=== PATIENT | male | born 1960 | race African-American/Black ===

== ENCOUNTER 2017-08-09 22:18 | Emergency (ER) | payer OTHER ==
[2017-08-09 22:32] VITALS: BP 140/57; PULSE 52; TEMP 98.5; BMI 33.9
--- NOTE | 2017-08-09 22:40 | PDOC ---
History of Present Illness - General History Source: Patient Exam Limitations: No Limitations - History of Present Illness Initial Comments: 08/09/17 22:59 The patient is a 56 year old male with a significant PMH of COPD, coronary artery spasms, and type 2 diabetes who presents to the emergency department with chest pain beginning earlier today. The patient describes his chest pain as a squeezing sensation with radiation to the left flank and intermittent LUE numbness, 6/10 in severity. The patient states he has been admitted several times in the past for similar symptoms. He states he has been compliant with his aspirin. The patient notes his last catheterization was in March. The patient denies shortness of breath, headache and dizziness. Denies fever, chills, nausea, vomit, diarrhea and constipation. Denies dysuria, frequency, urgency and hematuria. Allergies: NKA Past surgical history: None reported. Social history: No reported cigarette, alcohol, or drug use. PCP: Dr. Vines Cardio: Dr. Klein <Duncan Gill - Last Filed: 08/09/17 22:58> - General History Source: Patient <MaxineRaf - Last Filed: 08/10/17 00:34> - General Chief Complaint: Chest Pain Stated Complaint: CHEST PAIN Time Seen by Provider: 08/09/17 22:40 Past History <Duncan Gill - Last Filed: 08/09/17 22:58> - Past Medical History Cardiac Disorders: Yes COPD: Yes Diabetes: Yes - Suicide/Smoking/Psychosocial Hx Smoking History: Never smoked Have you smoked in the past 12 months: No Information on smoking cessation initiated: No Hx Alcohol Use: No Drug/Substance Use Hx: No Substance Use Type: None <Raf Briceno - Last Filed: 08/10/17 00:34> - Past Medical History Allergies/Adverse Reactions: Allergies Allergy/AdvReac Type Severity Reaction Status Date / Time No Known Allergies Allergy Verified 08/09/17 22:32 Review of Systems - Review of Systems Able to Perform ROS?: Yes Comments:: 08/09/17 22:59 CONSTITUTIONAL: Absent: fever, chills, diaphoresis, generalized weakness, malaise, loss of appetite HEENT: Absent: rhinorrhea, nasal congestion, throat pain, throat swelling, difficulty swallowing, mouth swelling, ear pain, eye pain, visual Changes CARDIOVASCULAR: (+) Chest pain with radiation to left flank and intermittent numbness to left arm Absent: syncope, palpitations, irregular heart rate, lightheadedness, peripheral edema RESPIRATORY: Absent: cough, shortness of breath, dyspnea with exertion, orthopnea, wheezing, stridor, hemoptysis GASTROINTESTINAL: Absent: abdominal pain, abdominal distension, nausea, vomiting, diarrhea, constipation, melena, hematochezia GENITOURINARY: Absent: dysuria, frequency, urgency, hesitancy, hematuria, flank pain, genital pain MUSCULOSKELETAL: Absent: myalgia, arthralgia, joint swelling SKIN: Absent: rash, itching, pallor HEMATOLOGIC/IMMUNOLOGIC: Absent: easy bleeding, easy bruising, lymphadenopathy, frequent infections ENDOCRINE: Absent: unexplained weight gain, unexplained weight loss, heat intolerance, cold intolerance NEUROLOGIC: Absent: headache, focal weakness or paresthesias, dizziness, unsteady gait, seizure, mental status changes, bladder or bowel incontinence PSYCHIATRIC: Absent: anxiety, depression, suicidal or homicidal ideation, hallucinations. <Duncan Gill - Last Filed: 08/09/17 22:58> *Physical Exam - Vital Signs Last Vital Signs Temp Pulse Resp BP Pulse Ox 98.5 F 52 L 17 140/57 100 08/09/17 22:29 08/09/17 22:29 08/09/17 22:29 08/09/17 22:29 08/09/17 22:29 - Physical Exam Comments: 08/09/17 22:59 GENERAL: Well developed, well nourished. Awake and alert. No acute distress. HEENT: Normocephalic, atraumatic. PERRLA, EOMI. No conjunctival pallor. Sclera are non- icteric. Moist mucous membranes. Oropharynx is clear. NECK: Supple. Full ROM. No JVD. Carotid pulses 2+ and symmetric, without bruits. No thyromegaly. No lymphadenopathy. CARDIOVASCULAR: (+) Bradycardic. Regular rhythm. No murmurs, rubs, or gallops. Distal pulses are 2+ and symmetric. PULMONARY: No evidence of respiratory distress. Lungs clear to auscultation bilaterally. No wheezing, rales or rhonchi. ABDOMINAL: Soft. Non-tender. Non-distended. No rebound or guarding. No organomegaly. Normoactive bowel sounds. MUSCULOSKELETAL Normal range of motion at all joints. No bony deformities or tenderness. No CVA tenderness. EXTREMITIES: No cyanosis. No clubbing. No edema. No calf tenderness. SKIN: Warm and dry. Normal capillary refill. No rashes. No jaundice. NEUROLOGICAL: Alert, awake, appropriate. Cranial nerves 2-12 intact. No deficits to light touch and temperature in face, upper extremities and lower extremities. No motor deficits in the in face, upper extremities and lower extremities. Normoreflexic in the upper and lower extremities. Normal speech. Toes are downgoing bilaterally. Gait is normal without ataxia. PSYCHIATRIC: Cooperative. Good eye contact. Appropriate mood and affect. <Duncan Gill - Last Filed: 08/09/17 22:58> - Vital Signs Last Vital Signs Temp Pulse Resp BP Pulse Ox 98.5 F 52 L 17 140/57 100 08/09/17 22:29 08/09/17 22:29 08/09/17 22:29 08/09/17 22:29 08/09/17 22:29 <Raf Briceno - Last Filed: 08/10/17 00:34> Heart Score/ECG Review #1 08/09/17 22:59 EKG done at 22:30 Vent rate 52 bpm Sinus bradycardia Nonspecific T wave abnormality Abnormal ECG <Duncan Gill - Last Filed: 08/09/17 22:58> ED Treatment Course - LABORATORY CBC & Chemistry Diagram: 08/09/17 23:12 08/09/17 23:12 <Raf Briceno - Last Filed: 08/10/17 00:34> Medical Decision Making - Medical Decision Making 08/10/17 00:31 Dr. Briceno: The scribe's documentation has been prepared under my direction and personally reviewed by me in its entirery. I confirm that the note above accurately reflects all work, treatment, procedures, and medical decision making performed by me. Pt chart was not merged together as he has had previous visits showing that his is within his usual range of troponin. Pt feels better now. Will discharge and advised pt to follow up with his manager transplant as soon as possible. <Raf Briceno - Last Filed: 08/10/17 00:34> *DC/Admit/Observation/Transfer - Attestations Scribe Attestion: 08/09/17 22:59 Documentation prepared by Duncan Gill, acting as medical tech for Raf Briceno DO. <Duncan Gill - Last Filed: 08/09/17 22:58> - Discharge Dispostion Decision to Admit order: No <Raf Briceno - Last Filed: 08/10/17 00:34> Diagnosis at time of Disposition: Chest pain Qualifiers: Chest pain type: precordial pain Qualified Code(s): R07.2 - Precordial pain - Discharge Dispostion Disposition: HOME Condition at time of disposition: Stable - Referrals Referrals: Flor Vines MD [Primary Care Provider] - Ari Klein MD [Staff Physician] - Gisella Godoy MD [Staff Physician] - - Patient Instructions Printed Discharge Instructions: DI for Chest Pain Additional Instructions: Please continue the medication you are already taking. Follow up with your cardiology as soon as possible. Return if any problems. - Post Discharge Activity
[2017-08-09 23:31] LABS: EOS % 3.3 % (0-4.5); HEMATOCRIT 42.2 % (35.4-49); HEMOGLOBIN 14.4 GM/dL (11.7-16.9); LYMPH % 43.5 % (8-40); MCH 29.9 pg (25.7-33.7); MEAN CELL VOLUME 87.9 fl (80-96); MONO % 6.9 % (3.8-10.2); NEUT % 45.3 % (42.8-82.8); PLATELET COUNT 191 K/MM3 (134-434); RDW 13.9 % (11.9-15.9); WHITE BLOOD COUNT 7.3 K/mm3 (4.0-10.0)
[2017-08-09 23:45] LABS: PROTHROMBIN TIME (PATIENT) 11.3 SEC (9.7-13.0)
[2017-08-09 23:54] LABS: ANION GAP 6 (8-16); BILIRUBIN,TOTAL 0.3 mg/dL (0.2-1.0); BLOOD UREA NITROGEN 13 mg/dL (7-18); CALCIUM 9.1 mg/dL (8.5-10.1); CHLORIDE 105 mmol/L (98-107); CO2 30 mmol/L (21-32); CREATININE 1.2 mg/dL (0.7-1.3); GLUCOSE,RANDOM 115 mg/dL (74-106); SGPT/ALT 59 U/L (12-78); SODIUM 141 mmol/L (136-145); TOT PROT 8.1 g/dl (6.4-8.2)
[2017-08-09 23:59] LABS: ALK PHOS 73 U/L (45-117); N-TERMINAL BNP 28.05 pg/ml (5-125)
[2017-08-10 00:02] LABS: MAGNESIUM 1.9 mg/dL (1.8-2.4); POTASSIUM 4.3 mmol/L (3.5-5.1); SGOT/AST 18 U/L (15-37)
--- NOTE | 2017-08-10 13:58 | EKG ---
Test Reason : Blood Pressure : / mmHG Vent. Rate : 051 BPM Atrial Rate : 051 BPM P-R Int : 156 ms QRS Dur : 094 ms QT Int : 422 ms P-R-T Axes : 074 -09 -10 degrees QTc Int : 388 ms SINUS BRADYCARDIA OTHERWISE NORMAL ECG NO PREVIOUS ECGS AVAILABLE Confirmed by ATIYA BYERS, VIC ([id number]) on 08/10/2017 1:58:18 PM Referred By: Confirmed By:VIC RAJPUT MD
== END 2017-08-10 00:40 | disposition home or self-care (01) ==
LOC: JER 22:18
DX: R07.2 Precordial pain (principal); I20.1 Angina pectoris with documented spasm; J44.9 Chronic obstructive pulmonary disease, unspecified; E11.9 Type 2 diabetes mellitus without complications; Z98.61 Coronary angioplasty status; Z79.82 Long term (current) use of aspirin
CPT/HCPCS: 36415; 71045-TC-FY; 80053; 82550; 82553; 83735; 83880; 84484; 85025; 85610; 93005; 93010; 99283-25